=== PATIENT | female | born 1930 | race Caucasian/White ===

== ENCOUNTER 2019-11-15 16:08 | Emergency (ER) | payer OTHER, MEDICARE ==
--- OUTSIDE RECORDS SUMMARY | 2019-11-15 16:41 | XMS REPORT ---
:1930 [facility] Address [address] [place] [address] Dr. Garrido [address] [place] [id number] Care Team Providers Name Role Phone Unavailable Unavailable Unavailable Problems This patient has no known problems. Allergies, Adverse Reactions, Alerts This patient has no known allergies or adverse reactions. Medications This patient has no known medications.
--- NOTE | 2019-11-15 17:18 | RAD REPORT ---
EXAM DESCRIPTION: CT - Head Brain Wo Cont - 11/15/2019 5:11 pm CLINICAL HISTORY: headache, elevated blood pressure COMPARISON: HEAD BRAIN W O CONTRAST dated 02/21/2012 TECHNIQUE: Axial 5 mm thick images of the head were obtained without IV contrast. All CT scans are performed using dose optimization technique as appropriate and may include automated exposure control or mA/KV adjustment according to patient size. FINDINGS: No intracranial hemorrhage, mass, edema or shift of mid-line structures. No acute infarcti on changes seen. No cortical edema or sulcal effacement. Atrophy and chronic ischemic changes are pre sent mild to moderate for age. Ventricles are in proportion. Intracranial findings are similar to com parison imaging. Arterial and physiologic calcifications are present. Mastoid air cells and visualized portions of the paranasal sinuses are clear. No acute bony findings. IMPRESSION: Atrophy and chronic ischemic changes are present matching comparison. No acute intracranial finding.
--- NOTE | 2019-11-15 17:30 | RAD REPORT ---
EXAM DESCRIPTION: CT - Abdomen Pelvis Wo Contrast - 11/15/2019 5:12 pm CLINICAL HISTORY: abdominal pain, diarrhea COMPARISON: Abdomen Pelvis Wo Contrast dated 02/19/2019; Abdomen Pelvis Wo Contrast dated 12/14/19 18 TECHNIQUE: Axial [address] imaging of the abdomen and pelvis was performed without IV contrast. No IV contrast was given because of allergy, abnormal renal function, patient refusal or physician re quest. No oral contrast given. All CT scans are performed using dose optimization technique as appropriate and may include automated exposure control or mA/KV adjustment according to patient size. FINDINGS: No suspicious findings in the lung bases. The liver, spleen and pancreas show no suspicious findings on non-contrast imaging. Cholecystectomy c lips are present. No biliary tree dilatation. No hydronephrosis or suspicious renal mass. Fullness of the right renal pelvis matches comparison. Nu merous phleboliths are present but no ureteral calculi confirmed. No nonobstructing calculi. No signi ficant adrenal finding. Isodense renal masses and pyelonephritis cannot be excluded in the absence of IV contrast. The urinary bladder is without significant finding. Fluid filled but does not dilate the stomach. No gastric wall thickening or mass. Air densities along the proximal stomach are believed to be within gastric folds rather than gastric wall emphysema. Mul tiple fluid-filled prominent small bowel loops are present. Moderately prominent sigmoid diverticulos is without diverticulitis. There is moderate solid stool volume throughout the colon. No free air or free fluid. No large or small bowel pneumatosis. No hernia, mass or bulky lymphadenop athy. No suspicious bony findings. Prominent vascular calcifications present. The patient has aortoiliac endovascular stenting in place . IMPRESSION: No bowel obstruction, free air or surgically emergent finding. Multiple prominent fluid-filled small bowel loops consistent with an enteritis. No acute colon findin g. Fluid is filling but not dilating the stomach. Air densities in the proximal stomach are believed to be within the lumen of the stomach rather than gastric wall emphysema. Overall assessment is limited in the absence of oral and IV contrast. Full assessment is limited is the absence of IV contrast.
--- NOTE | 2019-11-15 17:33 | RAD REPORT ---
EXAM DESCRIPTION: RAD - Chest Single View - 11/15/2019 5:15 pm CLINICAL HISTORY: CHEST PAIN COMPARISON: Chest Pa And Lat (2 Views) dated 02/19/2019 TECHNIQUE: AP portable chest image was obtained 11/15/2019 5:15 pm . FINDINGS: No peripheral mass or consolidation. Patient has a very extensive interstitial fibrotic sahr ng pattern. Pattern is not substantially different when adjusting for a slightly more shallow inspira tory effort. Extent of disease can mask acute edema or infiltrate. Heart and vasculature are normal. No measurable pleural effusion and no pneumothorax. No acute bony abnormality seen. No acute aortic f indings suspected. IMPRESSION: Extensive chronic interstitial fibrotic lung disease. Extent of disease can mask mild or early interstitial edema or infiltrate.
[2019-11-15 17:43] LABS: Absolute Lymphocytes (CBC) 2.1 K/uL (0.7-4.9); Basophils % 0.6 % (0-1.3); Hematocrit 43.6 % (36.0-45.0); Lymphocytes % 26.9 % (15.3-44.8); MPV 8.6 fL (7.6-11.3); RBC Red Blood Cell Count 4.77 M/uL (3.86-4.86)
[2019-11-15 17:44] LABS: Protime INR 0.94
[2019-11-15] MEDS ORDERED: NA CHLORIDE 0.9% 500 ML ONE (17:46)
[2019-11-15] MEDS ORDERED: ACETAMINOPHEN 325 MG TABLET ONE (17:46)
[2019-11-15 17:59] LABS: ALT/SGPT 21 U/L (12-78); AST/SGOT 24 U/L (15-37); Albumin 3.9 g/dL (3.4-5.0); Alkaline Phosphatase 78 U/L (45-117); BUN Blood Urea Nitrogen 21 mg/dL (7-18); Bicarbonate 30 mmol/L (21-32); Bilirubin Direct 0.2 mg/dL (0-0.2); Bilirubin Total 0.4 mg/dL (0.2-1.0); Glucose Level 111 mg/dL (74-106); Magnesium 2.1 mg/dL (1.8-2.4); NT PRO-BNP 223 pg/mL (<450); Protein, Total 8.4 g/dL (6.4-8.2); Sodium Level 138 mmol/L (136-145); Troponin (Emerg Dept Use Only) < 0.02 ng/mL (0.0-0.045)
[2019-11-15 18:46] LABS: Urine Blood NEGATIVE (NEG); Urine Glucose NEGATIVE (NEG); Urine Protein NEGATIVE (NEG); Urine Specific Gravity 1.015 (1.005-1.030)
--- NOTE | 2019-11-15 18:57 | EDPHYS ---
Physician Documentation [facility] Name: Zoe Diaz Age: 89 yrs Sex: Female : 1930 Arrival Date: 11/15/2019 Time: 16:10 Bed 18 Private MD: ED Physician Onofre Garcia HPI: 11/15 16:50 This 89 yrs old Female presents to ER via Wheelchair with complaints of High jmm Blood Pressure. 16:50 The patient has elevated blood pressure and discovered this at home. Onset: The jmm symptoms/episode began/occurred gradually, 3 day(s) ago. Modifying factors: The symptoms are aggravated by The symptoms are alleviated by. Associated signs and symptoms: Pertinent positives: headache, Pertinent negatives: chest pain, dyspnea. This is an 89 year old female with a history of HTN that presents to the ED with complaints of right sided headache beginning approx 2 hours ago. Patient states she has not been feeling well since her cataract surgery this past Tuesday. Patient states she developed diarrhea after she ate. Patient also complains of abdominal distension with mild pain. . 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 - Coronavirus screen:: The patient has NOT traveled to [place] in the past 14 days. The patient has NOT had contact with known/suspected case of Coronavirus?. - Social history:: Smoking status: Patient denies any tobacco usage or history of. - Ebola Screening: : Patient negative for fever greater than or equal to 101.5 degrees Fahrenheit, and additional compatible Ebola Virus Disease symptoms Patient denies exposure to infectious person Patient denies travel to an Ebola-affected area in the 21 days before illness onset No symptoms or risks identified at this time. ROS: 16:50 Constitutional: Negative for fever, chills, and weight loss, Cardiovascular: Negative [facility] for chest pain, palpitations, and edema, Respiratory: Negative for shortness of breath, cough, wheezing, and pleuritic chest pain. 16:50 Constitutional: Positive for fatigue. 16:50 Abdomen/GI: Positive for abdominal pain, diarrhea. 16:50 Abdomen/GI: Positive for 16:50 Neuro: Positive for headache. 16:50 All other systems are negative. Exam: 16:50 Constitutional: This is a well developed, well nourished patient who is awake, alert, jmm and in no acute distress. Head/Face: atraumatic. Eyes: EOMI, no conjunctival erythema appreciated ENT: Moist Mucus Membranes Neck: Trachea midline, Supple Chest/axilla: Normal chest wall appearance and motion. Cardiovascular: Regular rate and rhythm. No edema appreciated Respiratory: Normal respirations, no respiratory distress appreciated Abdomen/GI: Non distended, soft Back: Normal ROM Skin: General appearance color normal MS/ Extremity: Moves all extremities, no obvious deformities appreciated, no edema noted to the lower extremities Neuro: Awake and alert, normal gait Vital Signs: 16:22 BP 193 / 77; Pulse 72; Resp 16 S; Temp 97.9(O); Pulse Ox 99% on R/A; Weight 48.99 kg ca1 (R); Height 5 ft. 7 in. (170.18 cm) (R); 18:01 BP 205 / 90; Pulse 68; Resp 22; Pulse Ox 100% ; bp 18:55 BP 177 / 78; Pulse 68; Resp 16; Pulse Ox 96% ; bp 19:30 BP 154 / 65; Pulse 67; Resp 18; Pulse Ox 97% on R/A; wh 16:22 Body Mass Index 16.92 (48.99 kg, 170.18 cm) ca1 MDM: 17:01 Patient medically screened. [facility] 18:54 Data reviewed: vital signs, nurses notes. Counseling: I had a detailed discussion with flakito the patient and/or guardian regarding: the historical points, exam findings, and any diagnostic results supporting the discharge/admit diagnosis, lab results, radiology results, the need for outpatient follow up, to return to the emergency department if symptoms worsen or persist or if there are any questions or concerns that arise at home. ED course: Care was discussed with Dr. Garcia through the patient's evaluation. Imaging studies, labs, ekgs were evaluated by Dr. Garcia. The patient's symptoms have resolved in the ED. Imaging studies appear most likely viral. Patient does not appear to have an acute process. Advised to follow up with Dr. Rouse for reevaluation. Family understood and agrees with the plan of care. . 11/15 16:50 Order name: Basic Metabolic Panel [facility] 11/15 16:50 Order name: CBC with Diff [facility] 11/15 16:50 Order name: LFT's [facility] 11/15 16:50 Order name: Magnesium [facility] 11/15 16:50 Order name: NT PRO-BNP [facility] 11/15 16:50 Order name: PT-INR [facility] 11/15 16:50 Order name: Troponin (emerg Dept Use Only) [facility] 11/15 17:56 Order name: CBC with Automated Diff; Complete Time: 17:56 [facility] 11/15 17:56 Order name: Protime (+INR); Complete Time: 17:56 [facility] 11/15 18:02 Order name: Basic Metabolic Panel; Complete Time: 18:02 [facility] 11/15 18:03 Order name: Liver (Hepatic) Function; Complete Time: 18:08 [facility] 11/15 18:03 Order name: Troponin (Emerg Dept Use Only); Complete Time: 18:08 [facility] 11/15 18:03 Order name: NT PRO-BNP; Complete Time: 18:08 [facility] 11/15 18:03 Order name: Magnesium; Complete Time: 18:08 [facility] 11/15 16:50 Order name: XRAY Chest (1 view) [facility] 11/15 16:50 Order name: EKG; Complete Time: 16:53 [facility] 11/15 16:50 Order name: Cardiac monitoring; Complete Time: 16:54 [facility] 11/15 16:50 Order name: EKG - Nurse/Tech; Complete Time: 17:39 [facility] 11/15 16:50 Order name: IV Saline Lock; Complete Time: 17:39 [facility] 11/15 16:50 Order name: Labs collected and sent; Complete Time: 17:39 [facility] 11/15 16:50 Order name: O2 Per Protocol; Complete Time: 16:55 [facility] 11/15 16:50 Order name: O2 Sat Monitoring; Complete Time: 16:55 [facility] 11/15 16:50 Order name: CT Head Brain wo Cont [facility] 11/15 17:01 Order name: CT Abd/Pelvis - Without Contrast [facility] 11/15 17:02 Order name: Urine Dipstick-Ancillary (obtain specimen); Complete Time: 18:26 [facility] 11/15 18:36 Order name: Urine Dipstick--Ancillary (enter results) em1 11/15 18:42 Order name: Vital Signs; Complete Time: 18:56 [facility] 11/15 18:49 Order name: Urine Dipstick-Ancillary; Complete Time: 18:49 EDMS Administered Medications: 17:30 Drug: Tylenol 650 mg Route: PO; bp 18:26 Follow up: Response: No adverse reaction bp 17:30 Drug: NS 0.9% 500 ml Route: IV; Rate: bolus; Site: right forearm; bp 18:26 Follow up: IV Status: Completed infusion; IV Intake: 500ml bp Disposition: 11/16 07:04 Co-signature as Attending Physician, Onofre Garcia MD I agree with the assessment and kdr plan of care. Disposition: 11/15/19 18:56 Discharged to Home. Impression: Headache, Diarrhea, unspecified. - Condition is Stable. - Discharge Instructions: Diarrhea, Adult, General Headache Without Cause. - Medication Reconciliation Form, Thank You Letter, Antibiotic Education, Prescription Opioid Use form. - Follow up: Private Physician; When: 2 - 3 days; Reason: Recheck today's complaints, Continuance of care, Re-evaluation by your physician. Signatures: Dispatcher [employer] EDMS Onofre Garcia MD MD kdr Mickail, Joel, PA PA [facility] Tara Ling Robert Schulte, KAYLA RN Stacie Medina RN RN ca1 Corrections: (The following items were deleted from the chart) 11/15 19:32 18:56 11/15/2019 18:56 Discharged to Home. Impression: Headache; Diarrhea, unspecified. Condition is Stable. Forms are Medication Reconciliation Form, Thank You Letter, Antibiotic Education, Prescription Opioid Use. Follow up: Private Physician; When: 2 - 3 days; Reason: Recheck today's complaints, Continuance of care, Re-evaluation by your physician. jmm
--- NOTE | 2019-11-15 18:57 | ER ---
Nurse's Notes [facility] Name: Zoe Diaz Age: 89 yrs Sex: Female : 1930 Arrival Date: 11/15/2019 Time: 16:10 Bed 18 Private MD: Diagnosis: Headache;Diarrhea, unspecified Presentation: 11/15 16:16 Presenting complaint: Child states: She had cataract surgery on Tuesday. Her BP today ca1 203/83. Reports headache and nausea. Also reports diarrhea everyday since Tuesday after the Cataract surgery. Transition of care: patient was not received from another setting of care. Onset of symptoms was November 15, 2019. Risk Assessment: Do you want to hurt yourself or someone else? Patient reports no desire to harm self or others. Initial Sepsis Screen: Does the patient meet any 2 criteria? No. Patient's initial sepsis screen is negative. Does the patient have a suspected source of infection? No. Patient's initial sepsis screen is negative. Care prior to arrival: None. 16:16 Method Of Arrival: Wheelchair ca1 16:16 Acuity: MATHIEU 3 ca1 Triage Assessment: 16:20 General: Appears in no apparent distress. comfortable, Behavior is cooperative, bp appropriate for age, anxious. Pain: Complains of pain in head. EENT: No deficits noted. Neuro: No deficits noted. Cardiovascular: Rhythm is sinus rhythm. Respiratory: No deficits noted. GI: No signs and/or symptoms were reported involving the gastrointestinal system. : No signs and/or symptoms were reported regarding the genitourinary system. Derm: No deficits noted. Musculoskeletal: No deficits noted. 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 - Coronavirus screen:: The patient has NOT traveled to [place] in the past 14 days. The patient has NOT had contact with known/suspected case of Coronavirus?. - Social history:: Smoking status: Patient denies any tobacco usage or history of. - Ebola Screening: : Patient negative for fever greater than or equal to 101.5 degrees Fahrenheit, and additional compatible Ebola Virus Disease symptoms Patient denies exposure to infectious person Patient denies travel to an Ebola-affected area in the 21 days before illness onset No symptoms or risks identified at this time. Screenin:20 Abuse screen: Denies threats or abuse. Denies injuries from another. Nutritional bp screening: No deficits noted. Tuberculosis screening: No symptoms or risk factors identified. Fall Risk None identified. Assessment: 16:20 General: SEE TRIAGE NOTE. bp 18:02 Reassessment: PT RETURNED FROM CT. UOP PENDING. bp 19:05 Reassessment: Patient appears in no apparent distress at this time. Patient and/or wh family updated on plan of care and expected duration. Pain level reassessed. Patient is alert, oriented x 3, equal unlabored respirations, skin warm/dry/pink. Vital Signs: 16:22 BP 193 / 77; Pulse 72; Resp 16 S; Temp 97.9(O); Pulse Ox 99% on R/A; Weight 48.99 kg ca1 (R); Height 5 ft. 7 in. (170.18 cm) (R); 18:01 BP 205 / 90; Pulse 68; Resp 22; Pulse Ox 100% ; bp 18:55 BP 177 / 78; Pulse 68; Resp 16; Pulse Ox 96% ; bp 19:30 BP 154 / 65; Pulse 67; Resp 18; Pulse Ox 97% on R/A; wh 16:22 Body Mass Index 16.92 (48.99 kg, 170.18 cm) ca1 ED Course: 16:10 Patient arrived in ED. as 16:19 Triage completed. ca1 16:20 Patient has correct armband on for positive identification. Bed in low position. Call bp light in reach. Side rails up X2. Adult w/ patient. 16:22 Arm band placed on right wrist. ca1 16:40 Robert Schulte RN is Primary Nurse. bp 16:49 Nicola Shane PA is PHCP. jmm 16:49 Onofre Garcia MD is Attending Physician. pranay 17:30 Inserted saline lock: 22 gauge in right forearm, using aseptic technique. Blood bp collected. 19:30 No provider procedures requiring assistance completed. IV discontinued, intact, bleeding controlled, No redness/swelling at site. Administered Medications: 17:30 Drug: Tylenol 650 mg Route: PO; bp 18:26 Follow up: Response: No adverse reaction bp 17:30 Drug: NS 0.9% 500 ml Route: IV; Rate: bolus; Site: right forearm; bp 18:26 Follow up: IV Status: Completed infusion; IV Intake: 500ml bp Intake: 18:26 IV: 500ml; Total: 500ml. bp Outcome: 18:56 Discharge ordered by . pranay 19:30 Discharged to home via wheelchair, with family. 19:30 Condition: stable 19:30 Discharge instructions given to patient, family, Instructed on discharge instructions, follow up and referral plans. POC Demonstrated understanding of instructions, follow-up care, POC 19:32 Patient left the ED. Signatures: Nicola Shane PA PA jmm Martinez, Amelia as Habalo, Winsy Robert Schulte, RN RN bp Stacie Nino RN RN ca1
[2019-11-16 12:10] VITALS: TEMP 97.9
[2019-11-16 12:14] VITALS: BP 154/65; O2SAT 97
--- NOTE | 2019-11-16 13:36 | EKG ---
Test Date: 2019-11-15 Test Time: 17:34:53 Machining Department Supervisor: JENNI MEASUREMENT RESULTS: Intervals: Rate: 72 PA: 154 QRSD: 86 QT: 378 QTc: 413 [place]: P: 81 PA: 154 QRS: 91 T: 80 INTERPRETIVE STATEMENTS: Normal sinus rhythm Rightward axis Borderline ECG Compared to ECG 12/13/2017 12:49:30 Right-axis deviation now present Atrial fibrillation no longer present Electronically Signed On 11-16-19 13:36:04 GAS STATION OPERATOR by Johan Wheat
== END 2019-11-15 19:32 | disposition home or self-care (01) ==
LOC: ER 16:08
DX: R19.7 Diarrhea, unspecified (principal); I10 Essential (primary) hypertension; Z95.9 Presence of cardiac and vascular implant and graft, unspecified; Z88.0 Allergy status to penicillin; Z88.1 Allergy status to other antibiotic agents; Z88.2 Allergy status to sulfonamides; Z88.3 Allergy status to other anti-infective agents; Z88.8 Allergy status to other drugs, medicaments and biological substances
CPT/HCPCS: 93005; 85025; 80048; 36415; 83735; 85610; 80076; 81003; 84484; 83880; 70450; 74176; 71045; 96360; 99284; J7040

== ENCOUNTER 2020-10-31 09:08 | Observation (INO) | payer OTHER, MEDICARE ==
--- OUTSIDE RECORDS SUMMARY | 2020-10-31 09:14 | XMS REPORT | Continuity of Care Document ---
:1930 Author Organization [facility] t Address [address] [place] [address] Care Team Providers Name Role Phone Francisco GARZA, Olivia Attending Clinician Unavailable Singer FERREIRA Attending Clinician Bev Mckeon Attending Clinician Parker GAITAN Attending Clinician Doctor Unassigned, Name Attending Clinician Unavailable Reid GAITAN, S Attending Clinician Parker GAITAN Admitting Clinician Problems This patient has no known problems. Allergies, Adverse Reactions, Alerts This patient has no known allergies or adverse reactions. Medications This patient has no known medications. Procedures This patient has no known procedures. Encounters Start End Encounter Admission Attending Care Care Encounter Source Date/Time Date/Time Type Type Clinicians Facility Department ID 2020-08-20 2020-08-20 Transition David Singh [id number] 00:00:00 00:00:00 of Care Nolan Davies [id number] [place] [id number] 2020-08-09 2020-08-19 [facility] Oleg Villegas [facility] [id number] 16:59:00 17:04:00 Encounter Audi Porras [id number] Deloris Canales [id number] [place] [id number] 2020-02-25 2020-02-25 Emergency Audi Porras [facility] [id number] 12:36:11 16:01:00 Bev Diop [id number] [place] [id number] [place] [id number] 2020-02-25 2020-02-25 Orders Doctor OLIVERIO [id number] 00:00:00 00:00:00 Only Unassigned, ESME [id number] [facility] [id number] 2020-02-15 2020-02-15 [facility] [id number] 03:34:26 06:46:00 Vj Diop [id number] [place] [id number] [place] [id number] Results This patient has no known results.
[2020-10-31 11:12] LABS: Absolute Lymphocytes (CBC) 1.6 K/uL (0.7-4.9); Basophils % 0.5 % (0-1.3); Hematocrit 42.3 % (36.0-45.0); Lymphocytes % 18.4 % (15.3-44.8); MPV 8.9 fL (7.6-11.3); RBC Red Blood Cell Count 4.68 M/uL (3.86-4.86)
[2020-10-31] MEDS ORDERED: MORPHINE 2 MG/ML SYR ONE ×2 (11:17→14:03)
[2020-10-31] MEDS ORDERED: FAMOTIDINE 20 MG/2 ML VIAL IV ONE (11:17)
[2020-10-31] MEDS ORDERED: NA CHLORIDE 0.9% 500 ML ONE (11:17)
[2020-10-31] MEDS ORDERED: ONDANSETRON 4 MG/2 ML VIAL ONE ×2 (11:17→14:04)
--- NOTE | 2020-10-31 12:38 | RAD REPORT ---
EXAM DESCRIPTION: RAD - Chest Single View - 10/31/2020 10:53 am CLINICAL HISTORY: ABDOMINAL DISTENTION, abdominal pain COMPARISON: Portable November 2019 TECHNIQUE: AP portable chest image was obtained 10/31/2020 10:53 am . FINDINGS: Lungs are extensively fibrotic as a baseline. No mass, consolidation or failure findings. Heart and vasculature are normal. No measurable pleural effusion and no pneumothorax. No acute bony a bnormality seen. No acute aortic findings suspected. IMPRESSION: No acute cardiopulmonary process. Prominent baseline fibrotic lung pattern matches comparison.
[2020-10-31 13:04] LABS: Albumin 3.2 g/dL (3.4-5.0); Bilirubin Direct 0.1 mg/dL (0-0.2); Bilirubin Total 0.4 mg/dL (0.2-1.0); Magnesium 1.7 mg/dL (1.8-2.4); Potassium 3.6 mmol/L (3.5-5.1)
--- NOTE | 2020-10-31 13:42 | RAD REPORT ---
EXAM DESCRIPTION: CTAbdomen Pelvis W Contrast - 10/31/2020 1:29 pm CLINICAL HISTORY: Abdominal pain. Abd pain;Abdominal distention COMPARISON: CT ABD PELVIS W CONTRAST dated 04/23/2008; Abdomen Pelvis Wo Contrast dated 11/15/2019 TECHNIQUE: Biphasic CT imaging of the abdomen and pelvis was performed with 100 ml non-ionic IV cont rast. All CT scans are performed using dose optimization technique as appropriate and may include automated exposure control or mA/KV adjustment according to patient size. 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 The liver, spleen, pancreas, adrenal glands and kidneys are within normal limits. Endovascular repair of abdominal aortic aneurysm is noted. Nonspecific distention is seen of small bowel loops and colon. Diverticulosis is present involving th e sigmoid colon with fecal retention. Appendectomy. No evidence of significant lymphadenopathy. Moderate bilateral hip osteoarthritis. IMPRESSION: No acute intra-abdominal or pelvic finding. Generalized gaseous distention of small bowel loops is nonspecific but may represent an ileus. Moderate sigmoid diverticulosis present with fecal retention.
--- NOTE | 2020-10-31 14:48 | EDPHYS ---
Physician Documentation [facility] Name: Zoe Diaz Age: 89 yrs Sex: Female : 1930 Arrival Date: 10/31/2020 Time: 09:13 Bed 17 Private MD: ED Physician Onofre Garcia HPI: 10/31 10:05 This 89 yrs old Female presents to ER via Wheelchair with complaints of BOWEL cp BLOCKAGE. 10:05 The patient presents with abdominal pain that is diffuse. cp 10:05 Onset: The symptoms/episode began/occurred 1 week(s) ago. Associated signs and cp symptoms: Pertinent positives: diarrhea, nausea, abdominal distension, Pertinent negatives: fever, vomiting. The symptoms are described as constant. 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 - Social history:: Smoking status: Patient denies any tobacco usage or history of. ROS: 10:15 Constitutional: Negative for body aches, chills, fever, poor PO intake. cp 10:15 Eyes: Negative for injury, pain, redness, and discharge. cp 10:15 ENT: Negative for ear pain, sore throat, difficulty swallowing, difficulty handling secretions. 10:15 Cardiovascular: Negative for chest pain, palpitations. 10:15 Respiratory: Negative for cough, shortness of breath, wheezing. 10:15 Abdomen/GI: Positive for abdominal pain, nausea, diarrhea, abdominal distension, Negative for vomiting, constipation, black/tarry stool, rectal bleeding. 10:15 Back: Negative for pain at rest, pain with movement. 10:15 : Negative for urinary symptoms. 10:15 All other systems are negative. Exam: 10:20 Head/Face: Normocephalic, atraumatic. cp 10:20 Constitutional: The patient appears in no acute distress, alert, awake, non-diaphoretic, non-toxic, well developed, well nourished, uncomfortable. 10:20 Eyes: Periorbital structures: appear normal, Conjunctiva: normal, no exudate, no injection, Sclera: no appreciated abnormality, Lids and lashes: appear normal, bilaterally. 10:20 ENT: External ear(s): are unremarkable, Nose: is normal, Posterior pharynx: Airway: no evidence of obstruction, patent. 10:20 Chest/axilla: Inspection: normal, Palpation: is normal, no crepitus, no tenderness. 10:20 Cardiovascular: Rate: normal, Rhythm: regular, Edema: is not appreciated, JVD: is not appreciated. 10:20 Respiratory: the patient does not display signs of respiratory distress, Respirations: normal, no use of accessory muscles, labored breathing, is not present, Breath sounds: are clear throughout, no decreased breath sounds. 10:20 Abdomen/GI: Inspection: distension, that is mild, Bowel sounds: active, all quadrants, Palpation: soft, in all quadrants, moderate abdominal tenderness, in the right lower quadrant and left lower quadrant, voluntary guarding, is not appreciated, involuntary guarding, is not appreciated. 10:20 Back: pain, is absent, ROM is normal. Vital Signs: 09:57 BP 218 / 98; Pulse 83; Resp 20; Temp 98.0(O); Pulse Ox 97% on R/A; Weight 46.72 kg; ss Height 5 ft. 7 in. (170.18 cm); Pain 3/10; 11:13 BP 181 / 79; Pulse 75; Resp 18; Pulse Ox 98% on R/A; Pain 3/10; em 12:24 BP 169 / 78; Pulse 73; Resp 16; Pulse Ox 100% on R/A; vg1 13:00 BP 174 / 72; Pulse 67; Resp 12; Pulse Ox 100% on R/A; vg1 14:00 BP 173 / 67; Pulse 65; Resp 16; Pulse Ox 99% on R/A; vg1 15:00 BP 180 / 75; Pulse 65; Resp 20; Pulse Ox 100% on R/A; vg1 09:57 Body Mass Index 16.13 (46.72 kg, 170.18 cm) MDM: 09:55 Patient medically screened. 14:30 Physician consultation: Wojciech Ellis MD was called at 14:30, was contacted at 14:30, regarding consult, patient's condition, would like admission per Dr. Preston Rouse MD. 14:30 Data reviewed: vital signs, nurses notes, lab test result(s), radiologic studies, CT cp scan, plain films, and as a result, I will admit patient. 14:30 Counseling: I had a detailed discussion with the patient and/or guardian regarding: the cp historical points, exam findings, and any diagnostic results supporting the discharge/admit diagnosis, lab results, radiology results, the need for further work-up and treatment in the hospital. Response to treatment: the patient's symptoms have markedly improved after treatment. 10/31 10:01 Order name: Basic Metabolic Panel; Complete Time: 14:19 10/31 14:24 Interpretation: Normal except: CL 111; BUN 19; GFR 86; CA 8.3. 10/31 10:01 Order name: CBC with Diff; Complete Time: 14:19 10/31 10:01 Order name: Hepatic Function; Complete Time: 14:19 10/31 10:01 Order name: Lipase; Complete Time: 14:19 10/31 10:01 Order name: Lactate; Complete Time: 14:19 10/31 10:01 Order name: Magnesium; Complete Time: 14:19 10/31 10:30 Order name: Urine Microscopic Only 10/31 12:17 Order name: SARS-COV-2 RT PCR; Complete Time: 14:19 [facility] 10/31 15:15 Order name: Basic Metabolic Panel [facility] 10/31 15:15 Order name: Basic Metabolic Panel [facility] 10/31 15:15 Order name: CBC with Automated Diff [facility] 10/31 15:15 Order name: CBC with Automated Diff [facility] 10/31 15:15 Order name: Lipase [facility] 10/31 10:01 Order name: IV Saline Lock; Complete Time: 10:42 10/31 10:01 Order name: Labs collected and sent; Complete Time: 12:00 10/31 10:01 Order name: CT Abd/Pelvis - PO Contrast Only; Complete Time: 14:19 10/31 10:01 Order name: XRAY Chest (1 view); Complete Time: 14:19 10/31 14:21 Interpretation: Report reviewed. 10/31 15:15 Order name: CONS Physician Consult [facility] 10/31 15:15 Order name: NPO [facility] 10/31 15:15 Order name: Lipase [facility] 10/31 15:15 Order name: Liver (Hepatic) Function [facility] 10/31 15:15 Order name: Liver (Hepatic) Function [facility] 10/31 11:09 Order name: Labs - recollect needed: green top recollect; Complete Time: 12:25 eb Administered Medications: 11:09 Drug: Zofran (Ondansetron) 4 mg Route: IVP; Site: right forearm; em 12:00 Follow up: Response: No adverse reaction; Marked relief of symptoms; Nausea is decreasedem 11:11 Drug: NS 0.9% 500 ml Route: IV; Rate: 500 ml/hr; Site: right forearm; em 12:00 Follow up: IV Status: Completed infusion; IV Intake: 500ml em 11:11 Drug: morphine 2 mg Route: IVP; Site: right forearm; em 11:12 Drug: Pepcid 20 mg Route: IVP; Site: right forearm; em 12:00 Follow up: Response: No adverse reaction em 14:01 Drug: morphine 2 mg {Note: rass0.} Route: IVP; Site: right forearm; vg1 14:32 Follow up: Response: Pain is decreased vg1 14:01 Drug: Zofran (Ondansetron) 4 mg Route: IVP; Site: right forearm; vg1 14:31 Follow up: Response: Nausea is decreased vg1 15:27 Drug: NS 0.9% 1000 ml Route: IV; Rate: 75 ml/hr; Site: right wrist; vg1 16:24 Follow up: IV Status: Infusion continued upon admission vg1 Disposition: 18:50 Co-signature as Attending Physician, Onofre Garcia MD I agree with the assessment and kdr plan of care. Disposition: 10/31/20 14:47 Hospitalization ordered by Preston Rouse for Inpatient Admission. Preliminary diagnosis is Ileus, unspecified. - Bed requested for Telemetry/MedSurg (Inpatient). - Status is Inpatient Admission. vg1 - Condition is Stable. - Problem is new. - Symptoms have improved. Signatures: Dispatcher [employer] [facility] Onofre Garcia MD MD [facility] Manjit Howard RN RN em Smirch, Shelby, RN RN ss Page, Corey, PA PA cp Botello, Elizabeth eb Garcia, Victoria, RN RN vg1 Corrections: (The following items were deleted from the chart) 11:30 10:02 CORONAVIRUS+ ordered. EDMO EDMS 12:02 11:58 Constitutional: The patient appears in no acute distress, alert, awake, cp non-diaphoretic, non-toxic, well developed, well nourished, uncomfortable, cp 12:02 11:58 Head/Face: Normocephalic, atraumatic. cp cp 12:02 11:58 Eyes: Periorbital structures: appear normal, Conjunctiva: normal, no exudate, no cp injection, Sclera: no appreciated abnormality, Lids and lashes: appear normal, bilaterally, cp 12:02 11:58 ENT: External ear(s): are unremarkable, Nose: is normal, Posterior pharynx: cp Airway: no evidence of obstruction, patent, cp 12:02 11:58 Chest/axilla: Inspection: normal, Palpation: is normal, no crepitus, no cp tenderness, cp 12:02 11:58 Cardiovascular: Rate: normal, Rhythm: regular, Edema: is not appreciated, JVD: is cp not appreciated, cp 12:02 11:58 Respiratory: the patient does not display signs of respiratory distress, cp Respirations: normal, no use of accessory muscles, labored breathing, is not present, Breath sounds: are clear throughout, no decreased breath sounds, cp 12:02 11:58 Abdomen/GI: Inspection: distension, that is mild, Bowel sounds: active, all cp quadrants, Palpation: soft, in all quadrants, moderate abdominal tenderness, in the right lower quadrant and left lower quadrant, voluntary guarding, is not appreciated, involuntary guarding, is not appreciated, cp 12:02 11:58 Back: pain, is absent, ROM is normal, cp cp 14:24 14:20 Normal except: CL 111; BUN 19; GFR 86. cp cp 15:38 14:47 Hospitalization Ordered by Preston Rouse MD for Inpatient Admission. Preliminary eb diagnosis is Ileus, unspecified. Bed requested for Telemetry/MedSurg (Inpatient). Status is Inpatient Admission. Condition is Stable. Problem is new. Symptoms have improved. cp 16:33 15:38 10/31/2020 14:47 Hospitalization Ordered by Preston Rouse MD for Inpatient vg1 Admission. Preliminary diagnosis is Ileus, unspecified. Bed requested for Telemetry/MedSurg (Inpatient). Status is Inpatient Admission. Condition is Stable. Problem is new. Symptoms have improved. eb
--- NOTE | 2020-10-31 14:48 | ER ---
Nurse's Notes [facility] Name: Zoe Diaz Age: 89 yrs Sex: Female : 1930 Arrival Date: 10/31/2020 Time: 09:13 Bed 17 Private MD: Diagnosis: Ileus, unspecified Presentation: 10/31 09:59 Chief complaint: Patient states: abd pain, nausea and diarrhea that began 1 week ago. ss Coronavirus screen: Client denies travel out of the [place] in the last 14 days. Ebola Screen: Patient denies exposure to infectious person. Patient denies travel to an Ebola-affected area in the 21 days before illness onset. Initial Sepsis Screen: Does the patient meet any 2 criteria? No. Patient's initial sepsis screen is negative. Does the patient have a suspected source of infection? No. Patient's initial sepsis screen is negative. Risk Assessment: Do you want to hurt yourself or someone else? Patient reports no desire to harm self or others. Onset of symptoms was October 24, 2020. 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 - Social history:: Smoking status: Patient denies any tobacco usage or history of. Screenin:01 Abuse screen: Denies threats or abuse. Denies injuries from another. ss 10:40 Nutritional screening: No deficits noted. Tuberculosis screening: No symptoms or risk em factors identified. Fall Risk None identified. Assessment: 11:00 General: Appears in no apparent distress. uncomfortable, Behavior is calm, cooperative. em Pain: Complains of pain in abdomen Pain currently is 3 out of 10 on a pain scale. Neuro: Level of Consciousness is awake, alert, obeys commands, Oriented to person, place, time, situation. Cardiovascular: Capillary refill < 3 seconds Patient's skin is warm and dry. Respiratory: Airway is patent Respiratory effort is even, unlabored, Respiratory pattern is regular, symmetrical. GI: Abdomen is flat, non-distended, Reports nausea, vomiting. Derm: Skin is fragile, is thin, Skin is pink, warm \T\ dry. Musculoskeletal: Range of motion: intact in all extremities. 11:30 Reassessment: finished drinking PO contrast, no adverse reactions noted. em 12:22 General: Appears in no apparent distress. Behavior is calm, cooperative. Pain: vg1 Complains of pain in abdomen Pain currently is 3 out of 10 on a pain scale. Neuro: Level of Consciousness is awake, alert, obeys commands, Oriented to person, place, time, situation. Cardiovascular: Patient's skin is warm and dry. Respiratory: Airway is patent Respiratory effort is even, unlabored, Respiratory pattern is regular, symmetrical. GI: Abdomen is flat, non-distended. : No signs and/or symptoms were reported regarding the genitourinary system. EENT: No signs and/or symptoms were reported regarding the EENT system. Derm: Skin is pink, warm \T\ dry. Musculoskeletal: Circulation, motion, and sensation intact. 12:24 Reassessment: repeat chemistry sent to lab. em 13:36 Reassessment: Patient c/o headache and nausea. Notified provider. vg1 13:45 Reassessment: Received VO from Hossein Marquez to administer Zofran 4mg IVP x1. vg1 14:32 Reassessment: Patient appears in no apparent distress at this time. Patient is alert, vg1 oriented x 3, equal unlabored respirations, skin warm/dry/pink. Patient states the pain has decreased and feels a little bit better. 15:27 Reassessment: Patient appears in no apparent distress at this time. Patient and/or vg1 family updated on plan of care and expected duration. Pain level reassessed. Patient is alert, oriented x 3, equal unlabored respirations, skin warm/dry/pink. Vital Signs: 09:57 BP 218 / 98; Pulse 83; Resp 20; Temp 98.0(O); Pulse Ox 97% on R/A; Weight 46.72 kg; ss Height 5 ft. 7 in. (170.18 cm); Pain 3/10; 11:13 BP 181 / 79; Pulse 75; Resp 18; Pulse Ox 98% on R/A; Pain 3/10; em 12:24 BP 169 / 78; Pulse 73; Resp 16; Pulse Ox 100% on R/A; vg1 13:00 BP 174 / 72; Pulse 67; Resp 12; Pulse Ox 100% on R/A; vg1 14:00 BP 173 / 67; Pulse 65; Resp 16; Pulse Ox 99% on R/A; vg1 15:00 BP 180 / 75; Pulse 65; Resp 20; Pulse Ox 100% on R/A; vg1 09:57 Body Mass Index 16.13 (46.72 kg, 170.18 cm) ss ED Course: 09:13 Patient arrived in ED. am4 09:47 Hossein Marquez PA is PHCP. cp 09:47 Onofre Garcia MD is Attending Physician. cp 10:00 Triage completed. ss 10:01 Arm band placed on right wrist. ss 10:01 Patient has correct armband on for positive identification. Placed in gown. Bed in low ss position. vehicle monitor technician on. Pulse ox on. NIBP on. Warm blanket given. 10:25 Inserted saline lock: 20 gauge in right forearm, using aseptic technique. Blood dh3 collected. 10:27 Manjit Howard, RN is Primary Nurse. em 10:41 Basic Metabolic Panel Sent. dh3 10:42 Hepatic Function Sent. dh3 10:42 Lipase Sent. dh3 10:53 XRAY Chest (1 view) In Process Unspecified. EDMS 12:03 Primary Nurse role handed off by Manjit Howard, RN vg1 12:03 Laxmi Kirkpatrick, RN is Primary Nurse. vg1 13:29 CT Abd/Pelvis - PO Contrast Only In Process Unspecified. EDMS 14:46 Preston Rouse MD is Hospitalizing Provider. cp 16:19 No provider procedures requiring assistance completed. Patient admitted, IV remains in vg1 place. Administered Medications: 11:09 Drug: Zofran (Ondansetron) 4 mg Route: IVP; Site: right forearm; em 12:00 Follow up: Response: No adverse reaction; Marked relief of symptoms; Nausea is decreasedem 11:11 Drug: NS 0.9% 500 ml Route: IV; Rate: 500 ml/hr; Site: right forearm; em 12:00 Follow up: IV Status: Completed infusion; IV Intake: 500ml em 11:11 Drug: morphine 2 mg Route: IVP; Site: right forearm; em 11:12 Drug: Pepcid 20 mg Route: IVP; Site: right forearm; em 12:00 Follow up: Response: No adverse reaction em 14:01 Drug: morphine 2 mg {Note: rass0.} Route: IVP; Site: right forearm; vg1 14:32 Follow up: Response: Pain is decreased vg1 14:01 Drug: Zofran (Ondansetron) 4 mg Route: IVP; Site: right forearm; vg1 14:31 Follow up: Response: Nausea is decreased vg1 15:27 Drug: NS 0.9% 1000 ml Route: IV; Rate: 75 ml/hr; Site: right wrist; vg1 16:24 Follow up: IV Status: Infusion continued upon admission vg1 Intake: 12:00 IV: 500ml; Total: 500ml. em Outcome: 14:47 Decision to Hospitalize by Provider. cp 16:19 Admitted to Tele accompanied by tech, via stretcher, room 220, with chart, Report vg1 called to KAYLA Victor 16:19 Condition: stable 16:19 Instructed on the need for admit. 16:33 Patient left the ED. vg1 Signatures: Dispatcher [employer] Manjit Dorado RN RN em Smirch, Shelby, RN RN ss Page, Corey, PA PA Bruna Arcos [facility] Laxmi Kirkpatrick RN RN vg1 Melly Kirby [facility]
[2020-10-31] MEDS ORDERED: MORPHINE 4 MG/ML SYR IV PRN (15:13)
[2020-10-31] MEDS ORDERED: ONDANSETRON 4 MG/2 ML VIAL IV PRN (15:13)
[2020-10-31] MEDS ORDERED: NA CHLORIDE 0.9% 1,000 ML ONE (15:33)
[2020-10-31] MEDS: D5 0.45 NS 1,000 ML IV SCH (16:00)
[2020-10-31 16:47] VITALS: O2SAT 100
[2020-10-31 19:47] VITALS: BMI 16.1
--- NOTE | 2020-10-31 20:37 | P.SSS ---
Patient History Date of Service: 10/31/20 Reason for admission: PATIENT SAYS I HAVE OBSTRUCTION. History of Present Illness: MS. MCNAMARA HAS CHRONIC DIARRHEA AND HAS BEEN TO GI DOCTOR, I ALSO HAVE DONE STOOL SAMPLE TESTING WITHOUT ANY RESULTS. SHE CAME TO ER SAYING THAT SHE HAS OBSTRUCTION BUT SHE HAD A LARGE BM YESTERDAY THAT IT STAINED THE FLOOR OF THE WHOLE BATHROOM PER DAUGHTER. SOMEHOW PA LISTENED TO HER SAYING THAT SHE HAS OBSTRUCTION AND ADMITTED HER. THEY ARE CONVINCED THAT BENEATH HER HAVING COMPLAINTS OF CHRONIC DIARREHA SHE NOW HAS BOWEL OBSTRUCTION. SHE IS WEAK AND SHE WITH ANY SYMPTOMS DOES GET WEAK AND HAS HEADACHES. SHE HAS NO FEVER. Allergies ciprofloxacin [From Cipro] Allergy (Severe, Verified 02/21/12 21:00) Itching ciprofloxacin HCl [From Cipro] Allergy (Severe, Verified 12/13/17 13:11) Itching iodine [Iodine] Allergy (Severe, Verified 12/13/17 13:11) Itching/Hives/Rash levofloxacin [From Levaquin] Allergy (Severe, Verified 12/13/17 13:11) Anaphylaxis Penicillins Allergy (Severe, Verified 12/13/17 13:11) Anaphylaxis Cephalosporins Allergy (Unknown, Verified 12/13/17 13:11) unknown cefdinir [From Omnicef] Allergy (Verified 12/13/17 13:11) Unknown Sulfa (Sulfonamide Antibiotics) Allergy (Verified 12/13/17 13:11) Unknown Quinolone Allergy (Uncoded 12/05/17 21:25) Unknown Home Medications: Aspirin Chewable [Aspirin Chewable*] 81 mg PO DAILY 02/21/12 Clopidogrel Bisulfate [Plavix] 75 mg PO DAILY 02/21/12 Simvastatin 20 mg PO DAILY 04/29/16 Gabapentin [Neurontin*] 100 mg PO TID #90 cap 12/06/17 Metoprolol Ho/Hydrochlorothiaz [Metoprolol ER-Hctz 25-12.5 mg] 25 mg PO DAILY 12/06/17 Cholecalciferol (Vitamin D3) [Vitamin D3] 2,000 units PO DAILY 10/31/20 Fluticasone/Vilanterol [Breo Ellipta 200-25 Mcg INH] 200 mcg PO DAILY 10/31/20 Losartan/Hydrochlorothiazide [Losartan-Hctz 100-12.5 mg Tab] 25 mg PO DAILY 10/31/20 Magnesium [Magnesium Gluconate] 400 mg PO DAILY 10/31/20 - Past Medical/Surgical History Has patient received pneumonia vaccine in the past: No Diabetic: No -: DIVERTICULITIS -: AORTIC ABDOMINAL ANEURYSYM -: HIGH BLOOD PRESSURE -: CAROTID -: TRIPLE A REPAIR -: JONATAN -: PARTIAL HYSTERECTOMY -: BLADDER SUSPENSION - Family History Father -: Heart disease Mother -: Heart disease - Social History Smoking Status: Never smoker Alcohol use: No CD- Drugs: No Caffeine use: Yes Place of Residence: Home Review of Systems 10-point ROS is otherwise unremarkable General: Weakness, Malaise Physical Examination - Vital Signs Temperature: 98.0 F Blood Pressure: 180/75 Pulse: 65 Respirations: 20 - Physical Exam General: Mild distress HEENT: Atraumatic, PERRLA, Mucous membr. moist/pink, EOMI, Sclerae nonicteric Neck: Supple, 2+ carotid pulse no bruit, No LAD, Without JVD or thyroid abnormality Respiratory: Clear to auscultation bilaterally, Normal air movement Cardiovascular: Regular rate/rhythm, Normal S1 S2 Gastrointestinal: Normal bowel sounds, Soft and benign, No tenderness, No rebound Musculoskeletal: No tenderness Integumentary: No rashes Neurological: Normal gait, Normal speech, Normal strength at 5/5 x4 extr, Normal tone, Normal affect Lymphatics: No axilla or inguinal lymphadenopathy - Studies Laboratory Data (last 24 hrs) 10/31/20 12:22: Sodium 140, Potassium 3.6, BUN 19 H, Creatinine 0.65, Glucose 97, Magnesium 1.7 L, Total Bilirubin 0.4, AST 19, ALT 14, Alkaline Phosphatase 77, Lipase 98 10/31/20 11:01: WBC 8.60, Hgb 14.0, Hct 42.3, Plt Count 233 - Diagnosis (Problem(s)) (1) Constipation Current Visit: Yes Status: Acute Plan: SHE ON CT SCAN SHOWS MODERATE SIGMOID FECAL RETENTION. THIS EXPLAINS HER HAVING EXPLOSIVE BM LAST NIGHT AROUND THE STOOL RETAINED IN SIGMOID COLON. IDEALLY AN OIL RETENTION ENEMA MAY HELP. I WILL DISCUSS WITH HER IN AM. Qualifiers: Constipation type: chronic idiopathic constipation Qualified Code(s): K59.04 - Chronic idiopathic constipation (2) Chronic diarrhea Current Visit: Yes Status: Chronic Plan: ABOVE THIS IS PASSAGE OF PREMATURE UNFORMED STOOL AROUND THE IMPACTION IN SIGMOID COLON. I WILL DISCUSS WITH HER THAT PSYLLIUM HUSK MAY HELP. - Disposition Disposition: ROUTINE DISCHARGE
[2020-10-31 20:51] LABS: MPV 8.7 fL (7.6-11.3)
[2020-10-31 21:47] LABS: Platelet Estimate ADEQ; Platelets, Giant FEW
[2020-10-31] MEDS: GABAPENTIN 100 MG CAP PO SCH (22:15)
[2020-10-31 23:20] LABS: Urine Appearance CLEAR; Urine Bilirubin NEGATIVE (NEG); Urine Blood NEGATIVE (NEG); Urine Color YELLOW; Urine Glucose NEGATIVE (NEG); Urine Protein NEGATIVE (NEG); Urine Specific Gravity <=1.005 (1.005-1.030); Urine Urobilinogen 0.2 mg/dL (0.2-1.0); Urine pH 6.5 (5.0-7.0)
[2020-10-31 23:49] LABS: Urine Bacteria <20 /HPF (<20); Urine RBC <5 /HPF (NONE SEEN)
[2020-11-01 06:00] LABS: Absolute Lymphocytes (CBC) 1.4 K/uL (0.7-4.9); Basophils % 1.2 % (0-1.3); Lymphocytes % 26.7 % (15.3-44.8); MPV 9.1 fL (7.6-11.3); RBC Red Blood Cell Count 4.32 M/uL (3.86-4.86)
[2020-11-01 06:25] LABS: Potassium 3.6 mmol/L (3.5-5.1)
[2020-11-01] MEDS: D5 0.45 NS 1,000 ML IV SCH (07:31)
[2020-11-01] MEDS ORDERED: CLOPIDOGREL 75 MG TABLET PO SCH (09:00)
[2020-11-01] MEDS ORDERED: ENOXAPARIN 40 MG/0.4 ML SQ SCH (09:00)
[2020-11-01] MEDS ORDERED: HOME MED 1 EA UNK (Fluticasone/Vilanterol [Breo Ellipta 200-25 Mcg Inh] Blst.W.Dev) PO SCH (09:00)
[2020-11-01] MEDS ORDERED: MINERAL OIL ENEMA 135 ML BTL PR SCH (09:00)
[2020-11-01] MEDS ORDERED: ATORVASTATIN 10 MG TAB PO SCH (09:00)
[2020-11-01] MEDS ORDERED: [UNRECOGNIZED DRUG - OTHER] PO SCH (09:00)
[2020-11-01] MEDS ORDERED: HYDROCHLOROTHIAZ PO SCH (09:00)
[2020-11-01] MEDS ORDERED: METOPROLOL SU PO SCH (09:00)
[2020-11-01] MEDS ORDERED: HOME MED 1 EA UNK (Losartan/Hydrochlorothiazide [Losartan-Hctz 100-12.5 Mg Tab] Tablet) PO SCH (09:00)
[2020-11-01] MEDS ORDERED: MAGNESIUM OXIDE 400 MG TAB PO SCH (09:00)
[2020-11-01] MEDS: GABAPENTIN 100 MG CAP PO SCH (09:34)
[2020-11-01] MEDS ORDERED: METOPROLOL XL 25 MG TAB PO SCH (10:00)
[2020-11-01] MEDS ORDERED: LOSARTAN POTASSIUM 50 MG TABLET PO SCH (10:00)
[2020-11-01] MEDS ORDERED: PNEUMOCOCCAL VACCINE 0.5 ML IMVAC ONE (11:00)
[2020-11-01 12:25] VITALS: BP 178/75; TEMP 97.9
--- NOTE | 2020-11-01 12:59 | CON ---
Date of Consultation: 11/01/2020 Brief History Of Present Illness: The patient is an 89-year-old female, who comes to the ER with com plaints of abdominal pain and persistent diarrhea over the past several days. She has been seen by g astroenterologist in the past and had stool safely without any results. She came in complaining of p ossible obstruction, but she did have a large bowel yesterday at which was explosive diarrhea by her description. She apparently had been admitted to [facility] with a bowel obstruction. She descri bes NG tube decompression, serial x-rays and had described that she had a blockage in her intestines at that time that almost required surgery, but ultimately she resolved and as such, was sent home wit h the above-stated issues. She now presents with same said complaints, although now she is currently pain free. She continues to pass gas, but she has not had a bowel movement since her admission yest erday. Her last bowel movement as described was the day before, which was watery explosive diarrhea. She has had no nausea, no vomiting. She has no abdominal pain. No distention at this time. Past Medical History: Significant for aortic aneurysm, C diff in the past, hypertension, diverticuli tis. Past Surgical History: She had partial hysterectomy, cholecystectomy, appendectomy, abdominal stents for her aortic aneurysm. Allergies: TO CEPHALOSPORIN, CIPRO, IODINE, LEVAQUIN, OMNICEF, PENICILLIN, QUINOLONE, SULFA. Social History: She denies smoking, alcohol, or recreational drug use. Physical Examination: Vital Signs: At the time of examination, her BMI is 16.1, her blood pressure is 178/81, pulse 63, re spiratory rate 18, temperature 96.9. General: She is awake, alert, oriented. Psychiatric: She is appropriate and conversive. HEENT: She is normocephalic. Sclerae icteric. Mucous membranes are moist. Oropharynx clear. Neck: Supple. No JVD. Chest: Normal expansion and excursion. Cardiovascular: Regular rate and rhythm. Pulmonary: Clear to auscultation bilaterally. Abdomen: Soft, nontender, nondistended. No rebound. No guarding. No focal peritonitis. Well-heal ed surgical scars are noted. Laboratory Data: Revealed a white blood cell count of 5.2, hemoglobin 12.6, hematocrit 39.0, platele t count is 185, her neutrophils were normal at 53%. Sodium 140, potassium 3.6, chloride 109, carbon dioxide 27, BUN 12, creatinine 0.7, glucose is 101. Her calcium 8.9, lipase is 98 on admission. AST was 19, ALT 14, alkaline phosphatase is 77, total bilirubin 0.4. She was negative on her UA. Her C OVID test was negative as well. She had imaging performed, which included a CT abdomen and pelvis, w hich showed no acute intraabdominal pelvic findings, generalized gaseous distention of small bowel lo ops, it is nonspecific, may represent ileus, moderate sigmoid diverticulosis present with fecal reten tion. Assessment/plan: This is an 89-year-old female with likely impacted stool in the sigmoid colon. 1.IV fluid hydration. 2.Serial exams. 3.Enemas and when patient has bowel function return, I recommend discharge. At that point, she can follow up with GI for outpatient colonoscopy if she has not had one in the recent past. She cannot r ecall the details of which and continue workup as an outpatient. I have explained the risks, benefit s, and alternatives of the above stated plan. The patient agrees to proceed as indicated. ANYA/ODALYS Voice ID: [id number] Report ID: [id number]
== END 2020-11-01 15:08 | disposition home or self-care (01) ==
LOC: ER 09:08 → ERHOLD 15:12 → INTOOBSV 15:12 → 2ND 16:19
PROVIDERS: ADMIT Internal Medicine; ATTEND Internal Medicine
DX: K59.04 Chronic idiopathic constipation (principal); R19.7 Diarrhea, unspecified; I10 Essential (primary) hypertension; Z20.822 Contact with and (suspected) exposure to COVID-19
CPT/HCPCS: 96361; 85025 ×2; 81001; 80048 ×2; 36415; 83735; 85049; 80076; 83605; 83690; 74177; 71045; 96375; 96374; 99285; U0003; J1650; J2270 ×2; J7799 ×2; J7040; J7030; J2405 ×2; G0378

== ENCOUNTER 2021-06-15 15:10 | Emergency (ER) | payer OTHER, MEDICARE ==
--- OUTSIDE RECORDS SUMMARY | 2021-06-15 15:13 | XMS REPORT | Continuity of Care Document ---
:1930 Author Organization [facility] t Address [address] [place] [address] Care Team Providers Name Role Phone Padma Sheikh Primary Care Physician Therapist, Respiratory Attending Clinician Unavailable Karie FERREIRA Attending Clinician Only, Test Attending Clinician Unavailable Doctor Unassigned, Name Attending Clinician Unavailable Francisco GARZA, A Attending Clinician Unavailable Singer FERREIRA Attending Clinician Bev Mckeon Attending Clinician Parker GAITAN Attending Clinician Reid GAITAN S Attending Clinician Parker GAITAN Admitting Clinician Payers Payer Name Policy Type Policy Number Effective Date Expiration Date S ource Problems Condition Condition Condition Status Onset Resolution Last Treating Co mments Source Name Details Category Date Date Treatment Clinician Date CAD CAD Disease Active Univers (coronary (coronary 3-09 ity of artery artery 00:00: [place] disease) disease) 00 Medica l Branch PAD PAD Disease Active 2019-10 Univers (periphera (periphera 1-11 it y of l artery l artery 00:00: [place] disease) disease) 00 Medica l Branch Preop Preop Disease Active 2019-10 Univers cardiovasc cardiovasc 1-11 [place] of ular exam [place] 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 11 ity of artery artery 00:00: [place] stenosis stenosis 00 Medica l Branch Essential Essential Disease Active 2019-10 Uni vers hypertensi hypertensi 10-13 it y of on on 00:00: Medical Branch Other Other Disease Active 2019-10 Univers hyperlipid hyperlipid 10-13 it y of emia emia 00:00: Medical Branch Abdominal Abdominal Disease Active 2019-10 Uni vers aortic aortic 10-13 ity of aneurysm aneurysm 00:00: [place] (AAA) (AAA) 00 Medical without without Branch rupture rupture Tachycardi Tachycardi Disease Active 2019-10 U nivers a a 10-13 ity of 00:00: [place] Medical [facility] SBO (small SBO (small Disease Active 2019-10 U nivers bowel bowel 10-09 [place] obstruct[place] Wrist Wrist Disease Active Univers pain, left pain, left 6-07 it y of 00:00: [place] [facility] Allergies, Adverse Reactions, Alerts Allergy Allergy Status Severity Reaction(s) Onset Inactive Treating Comm ents Source Name Type Date Date Clinician Ciproflo Propensi Active Rash Univer s xacin ty to 7-05 ity of adverse 00:00: [place] reaction 00 Medical s Branch Iodine Propensi Active Itching Oral Univers ty to 3-15 ity of adverse 00:00: [place] reaction 00 Medical s Branch Cefaclor Propensi Active Rash Univer s ty to 5-05 ity of adverse 00:00: [place] reaction 00 Medical s Branch Ciprocin Propensi Active Rash Univer s onide ty to 5-05 ity of adverse 00:00: [place] reaction 00 Medical s Branch Cephalex Propensi Active Rash Univer s in ty to 5-05 ity of adverse 00:00: [place] reaction 00 Medical s Branch Levoflox Propensi Active Rash Univer s acin ty to 5-05 ity of adverse 00:00: [place] reaction 00 Medical s Branch Cefdinir Propensi Active Rash Univer s ty to 5-05 ity of adverse 00:00: [place] reaction 00 Medical s Branch Penicill Propensi Active Rash Univer s in ty to 5-05 ity of adverse 00:00: [place] reaction 00 Medical s Branch Sulfa Propensi Active Rash 2015- Univers (Sulfona ty to 5-05 ity of mide adverse 00:00: [place] Antibiot reaction 00 Medica l ics) s Branch Social History Social Habit Start Date Stop Date Quantity Comments Source Exposure to Not sure [facility] SARS-CoV-2 (event) Medica l Branch Tobacco use and 2021-04-06 2021-04-06 Never used [facility] exposure 00:00:00 00:00:00 Medical Branch Alcohol intake 2021-04-06 2021-04-06 [facility] 00:00:00 00:00:00 Medical [place] Sex [birth year] [facility] 00:00:00 00:00:00 Medical Branch Smoking Status Start Date Stop Date Source Never smoker [facility] [place] Medications Ordered Filled Start Stop Current Ordering Indication Dosage Frequency Signature Comments Components Source Medication Medication Date Date Medication? Clinician (SIG) Name Name ipratropium Yes 1{ampul 1 Ampule Univers -albuteroL 7-29 e} as needed ity of 0.5 mg-3 15:13: for [place] mg(2.5 mg 43 Wheezing. Medic al base)/3 mL Branch nebulizer solution ipratropium Yes 1{ampul 1 Ampule Univers -albuteroL 7-29 e} as needed ity of 0.5 mg-3 15:13: for [place] mg(2.5 mg 43 Wheezing. Medic al base)/3 mL Branch nebulizer solution ipratropium Yes 1{ampul 1 Ampule Univers -albuteroL 7-29 e} as needed ity of 0.5 mg-3 15:13: for [place] mg(2.5 mg 43 Wheezing. Medic al base)/3 mL Branch nebulizer solution Cholecalcif Yes Take by Un josafat edu, 7- mouth. ity of Vitamin D3, 15:04: [place] (VITAMIN 52 Medical D3) 1,000 Branch unit capsule gabapentin Yes 100mg Take 100 Un josafat 100 mg 7-29 mg by ity of capsule 15:04: mouth 2 [place] 52 (two) Medical times Branch daily. magnesium 2021-0 Yes 400mg Take 400 Uni vers oxide 400 7-29 mg by ity of mg (241.3 15:04: mouth [place] mg 52 daily. Medical magnesium) Branch tablet aspirin 81 Yes 81mg Take 81 mg U nivers mg chewable 7-29 by mouth ity of tablet 15:04: daily. [place] [address] Medical Branch Lactobacill Yes 1{tbl} Take 1 Un josafat us 7-29 tablet by ity of acidophilus 15:04: mouth [place] 2 billion 52 daily. Medical cell Tab Branch fluticasone Yes 1{puff} Inhale 1 Univers furoate-isma 7-29 Puff ity of anteroL 15:04: daily. [place] ([facility] 52 Medical ELLIPTA) Branch 200-25 mcg/dose DsDv Cholecalcif Yes Take by Un josafat edu, 7-29 mouth. ity of Vitamin D3, 15:04: [place] (VITAMIN Medical D3) 1,000 Branch unit capsule gabapentin Yes 100mg Take 100 Un josafat 100 mg 7-29 mg by ity of capsule 15:04: mouth 2 [place] [address] (two) Medical times Branch daily. magnesium Yes 400mg Take 400 Uni vers oxide 400 7-29 mg by ity of mg (241.3 15:04: mouth [place] mg 52 daily. Medical magnesium) Branch tablet aspirin 81 Yes 81mg Take 81 mg U nivers mg chewable 7-29 by mouth ity of tablet 15:04: daily. [place] [address] Medical Branch Lactobacill Yes 1{tbl} Take 1 Un josafat us 7-29 tablet by ity of acidophilus 15:04: mouth [place] 2 billion 52 daily. Medical cell Tab Branch fluticasone Yes 1{puff} Inhale 1 Univers furoate-isma 7-29 Puff ity of anteroL 15:04: daily. [place] (BREO 52 Medical ELLIPTA) Branch 200-25 mcg/dose DsDv Cholecalcif Yes Take by Un josafat edu, 7-29 mouth. ity of Vitamin D3, 15:04: [place] (VITAMIN 52 Medical D3) 1,000 Branch unit capsule gabapentin 2020-0 Yes 100mg Take 100 Un josafat 100 mg 7-29 mg by ity of capsule 15:04: mouth 2 [place] 52 (two) Medical times Branch daily. magnesium Yes 400mg Take 400 Uni vers oxide 400 7-29 mg by ity of mg (241.3 15:04: mouth [place] mg 52 daily. Medical magnesium) Branch tablet aspirin 81 Yes 81mg Take 81 mg U nivers mg chewable 7-29 by mouth ity of tablet 15:04: daily. [place] [address] Medical Branch Lactobacill Yes 1{tbl} Take 1 Un josafat us 7-29 tablet by ity of acidophilus 15:04: mouth [place] 2 billion 52 daily. Medical cell Tab Branch fluticasone Yes 1{puff} Inhale 1 Univers furoate-isma 7-29 Puff ity of anteroL 15:04: daily. [place] (BREO 52 Medical ELLIPTA) Branch 200-25 mcg/dose DsDv simvastatin Yes 20mg Take 20 mg Univers (ZOCOR) 20 4-13 by mouth ity o f mg tablet 00:00: at [place] [address] bedtime. Medical Branch simvastatin Yes 20mg Take 20 mg Univers (ZOCOR) 20 4-13 by mouth ity o f mg tablet 00:00: at [place] 00 bedtime. Medical Branch simvastatin Yes 20mg Take 20 mg Univers (ZOCOR) 20 4-13 by mouth ity o f mg tablet 00:00: at [place] 00 bedtime. Medical Branch clopidogrel Yes 37.5mg Take 37.5 Univers (PLAVIX) 75 3-21 mg by ity of mg tablet 00:00: mouth [place] 00 daily. Medical Branch clopidogrel Yes 37.5mg Take 37.5 Univers (PLAVIX) 75 3-21 mg by ity of mg tablet 00:00: mouth [place] 00 daily. Medical Branch clopidogrel Yes 37.5mg Take 37.5 Univers (PLAVIX) 75 3-21 mg by ity of mg tablet 00:00: mouth [place] 00 daily. Medical Branch Immunizations Ordered Filled Immunization Date Status Comments [facility] e Immunization Name Name Pneumococcal 2019-07-02 Completed Universit y of Conjugate, PCV13 00:00:00 [facility] dical (Prevnar 13) Branch Pneumococcal 13 2019-07-02 Completed Universit y of Conjugate, PCV13 00:00:00 [facility] dical (Prevnar 13) Branch Pneumococcal 13 2019-07-02 Completed Universit y of Conjugate, PCV13 00:00:00 [facility] dical (Prevnar 13) Branch Procedures Procedure Date / Time Performed Performing Clinician [facility] e ASSIGNMENT OF BENEFITS 2021-06-01 18:48:40 Doctor Unassigned, No [facility] Name Medical Branch Encounters Start End Encounter Admission Attending Care Care Encounter Source Date/Time Date/Time Type Type Clinicians Facility Department ID 2021-06-03 2021-06-03 Stone Mason Therapist, [facility] Respiratory [facility] [id number] Univers 07:33:46 09:03:46 Visit Lenoardo Tiwari [id number] ity of [place] [id number] [facility] [id number] [facility] 083 Branch 2021-06-01 2021-06-01 Laboratory Only, [facility] Test [facility] 1.2.840. [id number] Univers 13:49:55 14:04:55 Only Leonardo Tiwari [id number] ity of [place] [id number] [facility] [id number] [facility] 353 Branch 2021-06-01 2021-06-01 Orders Doctor OLIVERIO [id number] Univers 00:00:00 00:00:00 Only UnassignedESME [id number] ity of [place] [facility] [id number] Ey[place] [id number] [facility] 009 Branch 2020-08-20 2020-08-20 Transition David Singh [id number] 00:00:00 00:00:00 of Care Nolan Davies [id number] [place] [id number] [facility] 2020-08-09 2020-08-19 [facility] Oleg Villegas [facility] 1.2.840.1 [id number] 16:59:00 17:04:00 Encounter Audi Porras [id number] Deloris Canales [id number] [place] [id number] [facility] 2020-02-25 2020-02-25 Emergency Audi Porras [facility] [id number] 12:36:11 16:01:00 Bev Diop [id number] [place] [id number] [place] [id number] 084 2020-02-25 2020-02-25 Orders Doctor OLIVERIO [id number] 00:00:00 00:00:00 Only Unassigned, ESME [id number] [place] [facility] [id number] [id number] 009 2020-02-15 2020-02-15 [facility] [id number] 03:34:26 06:46:00 Vj Diop [id number] [place] [id number] [place] [id number] 084 Results This patient has no known results.
--- NOTE | 2021-06-15 15:32 | RAD REPORT ---
EXAM DESCRIPTION: CT - Head Brain Wo Cont - 06/15/2021 3:24 pm CLINICAL HISTORY: TRAUMA, fall with head injury COMPARISON: Head Brain Wo Cont dated 11/15/2019 TECHNIQUE: Axial 5 mm thick images of the head were obtained without IV contrast. All CT scans are performed using dose optimization technique as appropriate and may include automated exposure control or mA/KV adjustment according to patient size. FINDINGS: No intracranial hemorrhage, mass, edema or shift of mid-line structures. No acute infarcti on changes seen. No abnormal extra-axial fluid collections. Moderate atrophy with ventricles in propo rtion. Atrophy matches comparison. Chronic ischemic change is minimal. Arterial calcifications are pr esent. Mastoid air cells and visualized portions of the paranasal sinuses are clear. No acute bony findings. Small posterior left parietal scalp hematoma is present. IMPRESSION: No acute intracranial findings. Atrophy and chronic ischemic changes match November 2019 imaging.
[2021-06-15] MEDS ORDERED: ONDANSETRON 4 MG/2 ML VIAL ONE (15:48)
[2021-06-15] MEDS ORDERED: ONDANSETRON 4 MG (ODT) TAB ONE (15:50)
[2021-06-15] MEDS ORDERED: SILVER NITRATE 1 APPL TOP ONE (16:06)
[2021-06-15] MEDS ORDERED: LIDOCAINE 1% W/EPI 1:100,000 MDV 20 ML VIAL ONE (16:11)
--- NOTE | 2021-06-15 16:34 | EDPHYS ---
Physician Documentation [facility] Name: Zoe Diaz Age: 89 yrs Sex: Female : 1930 Arrival Date: 06/15/2021 Time: 15:14 Bed 6 Private MD: ED Physician Albert Del Cid HPI: 06/15 16:26 This 89 yrs old Female presents to ER via EMS with complaints of Fall injury. jr8 16:26 The patient or guardian reports a laceration, 4 cm(s), simple, pain. The complaints jr8 affect the top of head. Context of injury: The problem was sustained at home, resulted from a fall. Onset: The symptoms/episode began/occurred acutely, today. Associated signs and symptoms: Loss of consciousness: This patient did not experience any loss of consciousness. Pertinent positives: dazed, nausea. Severity of symptoms: At their worst the symptoms were moderate, in the emergency department the symptoms have improved, mildly. The patient has not experienced similar symptoms in the past. The patient has not recently seen a physician. This is an 89-year-old female patient was brought in by EMS status post fall patient stated that she was wearing shoes that she had not had in a long time and tripped falling backwards hitting the back of her head. EMS stated that she had a laceration with bleeding that they bandaged prior to arrival. Patient denies loss of consciousness but did feel dazed immediately after incident and has been slightly nauseated. Denies any other complaints at this time.. 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 - Social history:: Smoking status: Patient denies any tobacco usage or history of. ROS: 16:26 Eyes: Negative for injury, pain, redness, and discharge, ENT: Negative for injury, jr8 pain, and discharge, Neck: Negative for injury, pain, and swelling, Cardiovascular: Negative for chest pain, palpitations, and edema, Respiratory: Negative for shortness of breath, cough, wheezing, and pleuritic chest pain, Abdomen/GI: Negative for abdominal pain, vomiting, diarrhea, and constipation. Positive for nausea Back: Negative for injury and pain, MS/Extremity: Negative for injury and deformity, Neuro: Negative for headache, weakness, numbness, tingling, and seizure. 16:26 Skin: Positive for laceration(s). Exam: 16:26 Eyes: Pupils equal round and reactive to light, extra-ocular motions intact. Lids and jr8 lashes normal. Conjunctiva and sclera are non-icteric and not injected. Cornea within normal limits. Periorbital areas with no swelling, redness, or edema. ENT: Nares patent. No nasal discharge, no septal abnormalities noted. Tympanic membranes are normal and external auditory canals are clear. Oropharynx with no redness, swelling, or masses, exudates, or evidence of obstruction, uvula midline. Mucous membranes moist. Neck: Trachea midline, no thyromegaly or masses palpated, and no cervical lymphadenopathy. Supple, full range of motion without nuchal rigidity, or vertebral point tenderness. No Meningismus. Chest/axilla: Normal chest wall appearance and motion. Nontender with no deformity. No lesions are appreciated. Cardiovascular: Regular rate and rhythm with a normal S1 and S2. No gallops, murmurs, or rubs. Normal PMI, no JVD. No pulse deficits. Respiratory: Lungs have equal breath sounds bilaterally, clear to auscultation and percussion. No rales, rhonchi or wheezes noted. No increased work of breathing, no retractions or nasal flaring. Abdomen/GI: Soft, non-tender, with normal bowel sounds. No distension or tympany. No guarding or rebound. No evidence of tenderness throughout. Back: No spinal tenderness. No costovertebral tenderness. Full range of motion. Skin: Warm, dry with normal turgor. Normal color with no rashes, no lesions, and no evidence of cellulitis. MS/ Extremity: Pulses equal, no cyanosis. Neurovascular intact. Full, normal range of motion. Neuro: Awake and alert, GCS 15, oriented to person, place, time, and situation. Cranial nerves II-XII grossly intact. Motor strength 5/5 in all extremities. Sensory grossly intact. 16:26 Head/face: Noted is a laceration(s), that is deep, that is linear, 4 cm(s), of the back of head. Vital Signs: 15:18 BP 132 / 88; Pulse 74; Resp 19; Pulse Ox 97% on R/A; ap3 16:29 BP 135 / 59; Pulse 74; Pulse Ox 96% on R/A; ap3 17:01 BP 141 / 67; Pulse 71; Resp 18; Pulse Ox 99% ; Pain 0/10; ch5 Orrtanna Coma Score: 16:26 Eye Response: spontaneous(4). Verbal Response: oriented(5). Motor Response: obeys jr8 commands(6). Total: 15. Laceration: 16:26 Wound Repair of 4cm ( 1.6in ) subcutaneous laceration to back of head. Linear shaped.. jr8 Profuse bleeding noted.. Distal neuro/vascular/tendon intact. Anesthesia: Local anesthetic administered with 5 mls of 1% lidocaine w/ Epi. Wound prep: Extensive cleansing with hibiclenz, Wound irrigation with saline, Wound explored extensively. Skin closed with 4 Kenneth [place] using staple gun. Patient tolerated well. MDM: 15:15 Patient medically screened. jr8 16:26 Data reviewed: vital signs, nurses notes, radiologic studies, CT scan. Data jr8 interpreted: Pulse oximetry: on room air is 97 %. Interpretation: normal. Counseling: I had a detailed discussion with the patient and/or guardian regarding: the historical points, exam findings, and any diagnostic results supporting the discharge/admit diagnosis, radiology results, the need for outpatient follow up, a family practitioner, to return to the emergency department if symptoms worsen or persist or if there are any questions or concerns that arise at home. ED course: Patient is remained hemodynamically stable. Bleeding controlled post approximation with kenneth and lidocaine with epinephrine. CT of the head was without acute brain bleed or skull fracture. Patient has been observed without any further incident. Patient will be staying with her daughter carmen for close observation. Signs and symptoms of worsening condition given to patient and other daughter to watch for. Both of them are good with the plan at this time.. 06/15 15:15 Order name: CT Head Brain wo Cont; Complete Time: 15:36 jr8 Administered Medications: 16:07 Drug: Zofran (Ondansetron) 4 mg Route: PO; ap3 Disposition: 17:06 Co-signature as Attending Physician, Albert Del Cid MD I agree with the assessment and rn plan of care. Attestation: The patient's history, exam findings, diagnostics, and a summary of any interventions or procedures was reviewed in detail with Americo TRUJILLO. Disposition Summary: 06/15/21 16:33 Discharge Ordered Location: Home jr Problem: new jr8 Symptoms: have improved jr8 Condition: Stable jr8 Diagnosis - Laceration without foreign body of scalp jr8 Followup: jr8 - With: Private Physician - When: 1 week - Reason: Wound Recheck, Recheck today's complaints, Continuance of care, Staple/Suture removal, Re-evaluation by your physician Discharge Instructions: - Discharge Summary Sheet jr8 - Head Injury, Adult jr8 - Sutures, [place], or Adhesive Wound Closure jr8 Forms: - Medication Reconciliation Form jr8 - Thank You Letter jr8 - Antibiotic Education jr8 - Prescription Opioid Use jr8 Signatures: Dispatcher [employer] EDMS Albert Del Cid MD MD rn Roszak, Josh, PA PA jr8 Bernie Mancia RN RN ap3
--- NOTE | 2021-06-15 16:34 | ER ---
Nurse's Notes [facility] Name: Zoe Diaz Age: 89 yrs Sex: Female : 1930 Arrival Date: 06/15/2021 Time: 15:14 Bed 6 Private MD: Diagnosis: Laceration without foreign body of scalp Presentation: 06/15 15:14 Chief complaint: EMS states: patient was ambulating to door with new shoes on, when she ap3 lost her balance and fell backwards. patient denies LOC. states she takes an anticoagulant. Coronavirus screen: At this time, the client does not indicate any symptoms associated with coronavirus-19. Ebola Screen: Patient denies travel to an Ebola-affected area in the 21 days before illness onset. Risk Assessment: Do you want to hurt yourself or someone else? Patient reports no desire to harm self or others. 15:14 Method Of Arrival: EMS: [facility] ap3 15:16 Onset of symptoms was June 15, 2021. ap3 15:21 Initial Sepsis Screen: Does the patient meet any 2 criteria? No. Patient's initial ap3 sepsis screen is negative. Does the patient have a suspected source of infection? No. Patient's initial sepsis screen is negative. 15:21 Acuity: MATHIEU 3 ap3 Triage Assessment: 15:19 General: Appears slender, Behavior is calm, cooperative. Pain: Complains of pain in ap3 back of head Pain began suddenly. EENT: No signs and/or symptoms were reported regarding the EENT system. Neuro: Level of Consciousness is awake, alert, obeys commands, Oriented to person, place, time, situation, Speech is normal. Respiratory: Airway is patent Respiratory effort is even, unlabored, Respiratory pattern is regular, symmetrical. GI: Reports nausea. : No signs and/or symptoms were reported regarding the genitourinary system. Derm: Wound noted scalp. Musculoskeletal: Reports pain in back of head. Injury Description: fall. 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 - Social history:: Smoking status: Patient denies any tobacco usage or history of. Screenin:16 Abuse screen: Denies threats or abuse. Nutritional screening: No deficits noted. ap3 Tuberculosis screening: No symptoms or risk factors identified. Fall Risk. Vital Signs: 15:18 BP 132 / 88; Pulse 74; Resp 19; Pulse Ox 97% on R/A; ap3 16:29 BP 135 / 59; Pulse 74; Pulse Ox 96% on R/A; ap3 17:01 BP 141 / 67; Pulse 71; Resp 18; Pulse Ox 99% ; Pain 0/10; ch5 [place] Coma Score: 16:26 Eye Response: spontaneous(4). Verbal Response: oriented(5). Motor Response: obeys jr8 commands(6). Total: 15. ED Course: 15:14 Patient arrived in ED. ap3 15:14 Bernie Mancia, RN is Primary Nurse. ap3 15:15 Americo Rose PA is PHCP. jr8 15:15 Albert Del Cid MD is Attending Physician. jr8 15:16 Patient has correct armband on for positive identification. Placed in gown. Bed in low ap3 position. Call light in reach. Side rails up X2. Pulse ox on. NIBP on. Door closed. Noise minimized. 15:21 Triage completed. ap3 15:24 CT Head Brain wo Cont In Process Unspecified. EDMS 15:35 Assist provider with laceration repair on back of head that was between 2.6 to 7.5 cm ap3 using dion. Set up tray. Performed by Americo TRUJILLO Patient tolerated well. 15:58 Wound care: was cleaned with soap and water, Patient tolerated well. ap3 15:59 Arm band placed on right wrist. ap3 Administered Medications: 16:07 Drug: Zofran (Ondansetron) 4 mg Route: PO; ap3 Outcome: 16:33 Discharge ordered by . jr8 17:01 Discharged to home via wheelchair, with family. [facility] 17:01 Condition: improved 17:01 Discharge instructions given to patient, family, Instructed on wound care. 17:02 Patient left the ED. ch5 Signatures: Dispatcher [employer] EDAmerico Bronson PA PA jr8 Bernie Mancia RN RN ap3 Jose Angel Gomez RN RN ch5
[2021-06-15 17:11] VITALS: BP 141/67; O2SAT 99
== END 2021-06-15 17:02 | disposition home or self-care (01) ==
LOC: ER 15:10
PROC: 0JQ00ZZ Repair Scalp Subcutaneous Tissue and Fascia, Open Approach (ICD-10-PCS; principal; 2021-06-15)
DX: S01.01XA Laceration without foreign body of scalp, initial encounter (principal); W01.0XXA Fall on same level from slipping, tripping and stumbling without subsequent striking against object, initial encounter; Y92.009 Unspecified place in unspecified non-institutional (private) residence as the place of occurrence of the external cause; I10 Essential (primary) hypertension; Z88.0 Allergy status to penicillin; Z88.1 Allergy status to other antibiotic agents; Z88.2 Allergy status to sulfonamides; Z88.3 Allergy status to other anti-infective agents; Z88.5 Allergy status to narcotic agent; Z88.8 Allergy status to other drugs, medicaments and biological substances; Z91.048 Other nonmedicinal substance allergy status
CPT/HCPCS: 70450; 99284; J2405

== ENCOUNTER 2021-06-18 12:11 | Emergency (ER) | payer OTHER, MEDICARE ==
[2021-06-18] MEDS ORDERED: ACETAMINOPHEN 500 MG TAB ONE (12:50)
[2021-06-18] MEDS ORDERED: ONDANSETRON 4 MG (ODT) TAB ONE (12:50)
--- NOTE | 2021-06-18 13:45 | RAD REPORT ---
EXAM DESCRIPTION: CT - Head Brain Wo Cont - 06/18/2021 1:36 pm CLINICAL HISTORY: HEADACHE COMPARISON: Head Brain Wo Cont dated 06/15/2021; Head Brain Wo Cont dated 11/15/2019 TECHNIQUE: All CT scans are performed using dose optimization technique as appropriate and may inclu de automated exposure control or mA/KV adjustment according to patient size. FINDINGS: No intracranial hemorrhage, hydrocephalus or extra-axial fluid collection.No areas of brai n edema or evidence of midline shift. Left-sided scalp dion. Cerebral atrophy. Minimal chronic sma ll vessel ischemic changes. The paranasal sinuses and mastoids are clear. The calvarium is intact. IMPRESSION: No acute intracranial abnormality. No skull fracture.
--- NOTE | 2021-06-18 16:12 | EDPHYS ---
Physician Documentation [facility] Name: Zoe Diaz Age: 89 yrs Sex: Female : 1930 Arrival Date: 06/18/2021 Time: 12:15 Bed 28 Private MD: ED Physician Onofre Garcia HPI: 06/18 12:26 This 89 yrs old Female presents to ER via EMS with complaints of Nausea, jmm General Weakness, Headache. 12:26 The patient presents to the emergency department with nausea, vomiting. Onset: The jmm symptoms/episode began/occurred acutely, 3 day(s) ago. Possible causes: Head injury. The symptoms are aggravated by nothing. The symptoms are alleviated by nothing. Associated signs and symptoms: Pertinent positives:. This is an 89-year-old female with a history of diverticulitis, hypertension that presents emerged part with complaints of headache vomiting increased sleeping after head injury which occurred earlier this week.. Historical: - Allergies: 12:18 CEPHALOSPORINS; ld1 12:18 Cipro; rash; ld1 12:18 Iodine; ld1 12:18 Levaquin; aches all over; ld1 12:18 Omnicef; rash; ld1 12:18 PENICILLINS; ld1 12:18 QUINOLONES; ld1 12:18 Sulfa (Sulfonamide Antibiotics); rash; ld1 - PMHx: 12:18 aortic anuersym; - has been stented; Cdiff; Diverticulitis; Hypertension; ld1 - Immunization history:: Adult Immunizations up to date. - Social history:: Smoking status: Patient denies any tobacco usage or history of. ROS: 16:08 Cardiovascular: Negative for chest pain, palpitations, and edema, Respiratory: Negative jmm for shortness of breath, cough, wheezing, and pleuritic chest pain. 16:08 Constitutional: Positive for fatigue. 16:08 Neuro: Positive for headache. 16:08 All other systems are negative. Exam: 16:08 Constitutional: This is a well developed, well nourished patient who is awake, alert, jmm and in no acute distress. Head/Face: atraumatic. Eyes: EOMI, no conjunctival erythema appreciated ENT: Moist Mucus Membranes Neck: Trachea midline, Supple Chest/axilla: Normal chest wall appearance and motion. Cardiovascular: Regular rate and rhythm. No edema appreciated Respiratory: Normal respirations, no respiratory distress appreciated Abdomen/GI: Non distended, soft Back: Normal ROM Skin: General appearance color normal 16:08 Musculoskeletal/extremity: ROM: intact in all extremities. 16:08 Skin: Appearance: Color: normal in color. 16:08 Neuro: Orientation: is normal, Mentation: is normal, Memory: is normal. 16:08 Psych: Behavior/mood is pleasant, cooperative. Vital Signs: 12:16 BP 150 / 59; Pulse 76; Resp 18; Temp 98.7(TE); Pulse Ox 94% on R/A; Weight 56.7 kg; ld1 Height 5 ft. 4 in. (162.56 cm); Pain 8/10; 13:27 BP 137 / 52; Pulse 72; Resp 19; Pulse Ox 96% on R/A; ld1 14:15 BP 146 / 56; Pulse 69; Resp 18; Pulse Ox 96% on R/A; ld1 15:20 BP 165 / 63; Pulse 68; Resp 19; Pulse Ox 96% on R/A; ld1 12:16 Body Mass Index 21.46 (56.70 kg, 162.56 cm) ld1 MDM: 12:26 Patient medically screened. [facility] 16:10 Data reviewed: vital signs, nurses notes. Counseling: I had a detailed discussion with flakito the patient and/or guardian regarding: the historical points, exam findings, and any diagnostic results supporting the discharge/admit diagnosis, radiology results, the need for outpatient follow up, to return to the emergency department if symptoms worsen or persist or if there are any questions or concerns that arise at home. ED course: [facility] imaging is negative. Daughter given head injury return precautions. Most likely a post concussive syndrome.. 06/18 13:22 Order name: CT Head Brain wo Cont; Complete Time: 13:55 [facility] 06/18 14:22 Order name: PO challenge; Complete Time: 14:25 [facility] 06/18 14:22 Order name: Misc. Order: ambulate; Complete Time: 15:05 [facility] Administered Medications: 12:35 Drug: Zofran (Ondansetron) 4 mg Route: PO; ld1 12:35 Follow up: Response: No adverse reaction ld1 12:35 Drug: Tylenol 1000 mg Route: PO; ld1 12:35 Follow up: Response: No adverse reaction ld1 Disposition: 16:54 Co-signature as Attending Physician, Onofre Garcia MD I agree with the assessment and kdr plan of care. Disposition Summary: 06/18/21 16:12 Discharge Ordered Location: Home [facility] Condition: Stable jm Diagnosis - Postconcussional syndrome [facility] Followup: m - With: Private Physician - When: 2 - 3 days - Reason: Recheck today's complaints, Continuance of care, Re-evaluation by your physician Discharge Instructions: - Discharge Summary Sheet [facility] - Concussion, Adult [facility] Forms: - Medication Reconciliation Form [facility] - Thank You Letter [facility] - Antibiotic Education [facility] - Prescription Opioid Use [facility] Prescriptions: - ondansetron 4 mg Oral tablet,disintegrating - place 1 tablet by TRANSLINGUAL route every 4-6 hours; 20 tablet; Refills: 0, jmm Product Selection Permitted Signatures: Dispatcher [employer] EDOnofre Zuleta MD MD kdr Mickail, Joel, PA PA [facility] Tierra Carr, RN RN ld1
--- NOTE | 2021-06-18 16:12 | ER ---
Nurse's Notes [facility] Name: Zoe Diaz Age: 89 yrs Sex: Female : 1930 Arrival Date: 06/18/2021 Time: 12:15 Bed 28 Private MD: Diagnosis: Postconcussional syndrome Presentation: 06/18 12:16 Chief complaint: EMS states: toned out for headache, nausea and generalized weakness. ld1 Pt reports recent ER visit due to fall, dion noted to the back of head. Pt states that headache has continued since fall and has not gone away. Coronavirus screen: At this time, the client does not indicate any symptoms associated with coronavirus-19. Ebola Screen: No symptoms or risks identified at this time. Initial Sepsis Screen: Does the patient meet any 2 criteria? No. Patient's initial sepsis screen is negative. Does the patient have a suspected source of infection? No. Patient's initial sepsis screen is negative. Risk Assessment: Do you want to hurt yourself or someone else? Patient reports no desire to harm self or others. Onset of symptoms was June 18, 2021. 12:16 Method Of Arrival: EMS: [facility] ld1 12:16 Acuity: MATHIEU 3 ld1 Triage Assessment: 12:18 General: Appears in no apparent distress. uncomfortable, Behavior is calm, cooperative, ld1 appropriate for age. Pain: Complains of pain in face Pain does not radiate. Pain currently is 8 out of 10 on a pain scale. Quality of pain is described as throbbing, Pain began 2-3 days ago. Is continuous. EENT: No signs and/or symptoms were reported regarding the EENT system. Neuro: Level of Consciousness is awake, alert, obeys commands, Oriented to person, place, time, situation, Appropriate for age Reports dizziness, headache weakness. Cardiovascular: Capillary refill < 3 seconds Patient's skin is warm and dry. Rhythm is sinus rhythm. Respiratory: Airway is patent Respiratory effort is even, unlabored, Respiratory pattern is regular, symmetrical. GI: Abdomen is flat, non-distended, Reports nausea. : No signs and/or symptoms were reported regarding the genitourinary system. Derm: No signs and/or symptoms reported regarding the dermatologic system. Musculoskeletal: No signs and/or symptoms reported regarding the musculoskeletal system. Historical: - Allergies: 12:18 CEPHALOSPORINS; ld1 12:18 Cipro; rash; ld1 12:18 Iodine; ld1 12:18 Levaquin; aches all over; ld1 12:18 Omnicef; rash; ld1 12:18 PENICILLINS; ld1 12:18 QUINOLONES; ld1 12:18 Sulfa (Sulfonamide Antibiotics); rash; ld1 - PMHx: 12:18 aortic anuersym; - has been stented; Cdiff; Diverticulitis; Hypertension; ld1 - Immunization history:: Adult Immunizations up to date. - Social history:: Smoking status: Patient denies any tobacco usage or history of. Screenin:21 Abuse screen: Denies threats or abuse. Denies injuries from another. Nutritional ld1 screening: No deficits noted. Tuberculosis screening: No symptoms or risk factors identified. Fall Risk Fall in past 12 months (25 points). Total Matthews Fall Scale indicates No Risk (0-24 pts). Assessment: 12:21 Reassessment: See triage assessment. GI: Abdomen is flat, non-distended, Reports nausea.ld1 13:27 Reassessment: Patient appears in no apparent distress at this time. No changes from ld1 previously documented assessment. Patient and/or family updated on plan of care and expected duration. Pain level reassessed. Patient is alert, oriented x 3, equal unlabored respirations, skin warm/dry/pink. 14:15 Reassessment: Patient appears in no apparent distress at this time. No changes from ld1 previously documented assessment. Patient and/or family updated on plan of care and expected duration. Pain level reassessed. Patient is alert, oriented x 3, equal unlabored respirations, skin warm/dry/pink. 15:20 Reassessment: Patient appears in no apparent distress at this time. No changes from ld1 previously documented assessment. Patient is alert, oriented x 3, equal unlabored respirations, skin warm/dry/pink. Vital Signs: 12:16 BP 150 / 59; Pulse 76; Resp 18; Temp 98.7(TE); Pulse Ox 94% on R/A; Weight 56.7 kg; ld1 Height 5 ft. 4 in. (162.56 cm); Pain 8/10; 13:27 BP 137 / 52; Pulse 72; Resp 19; Pulse Ox 96% on R/A; ld1 14:15 BP 146 / 56; Pulse 69; Resp 18; Pulse Ox 96% on R/A; ld1 15:20 BP 165 / 63; Pulse 68; Resp 19; Pulse Ox 96% on R/A; ld1 12:16 Body Mass Index 21.46 (56.70 kg, 162.56 cm) ld1 ED Course: 12:15 Patient arrived in ED. [facility] 12:16 Tierra Carr, RN is Primary Nurse. ld1 12:18 Triage completed. ld1 12:18 Nicola Shane PA is PHCP. [facility] 12:18 Onofre Garcia MD is Attending Physician. [facility] 12:18 Arm band placed on right wrist. ld1 12:21 Patient has correct armband on for positive identification. Bed in low position. Call ld1 light in reach. Side rails up X2. mass spectrometry manager on. Pulse ox on. NIBP on. Door closed. Noise minimized. Warm blanket given. 12:21 No provider procedures requiring assistance completed. ld1 13:36 CT Head Brain wo Cont In Process Unspecified. EDMS 16:28 Patient did not have IV access during this emergency room visit. ld1 Administered Medications: 12:35 Drug: Zofran (Ondansetron) 4 mg Route: PO; ld1 12:35 Follow up: Response: No adverse reaction ld1 12:35 Drug: Tylenol 1000 mg Route: PO; ld1 12:35 Follow up: Response: No adverse reaction ld1 Outcome: 16:12 Discharge ordered by . [facility] 16:28 Discharged to home via wheelchair, with family. ld1 16:28 Condition: stable 16:28 Discharge instructions given to patient, family, Instructed on discharge instructions, follow up and referral plans. medication usage, Demonstrated understanding of instructions, follow-up care, medications, Prescriptions given X 1. 16:28 Patient left the ED. ld1 Signatures: Dispatcher [employer] EDMI Nicola Shane PA PA jmm Martinez, Maria [facility] Tierra Carr, RN RN ld1
[2021-06-18 16:34] VITALS: TEMP 98.7
[2021-06-18 16:35] VITALS: O2SAT 96
[2021-06-18 16:38] VITALS: BP 165/63
== END 2021-06-18 16:28 | disposition home or self-care (01) ==
LOC: ER 12:11
DX: F07.81 Postconcussional syndrome (principal); W19.XXXA Unspecified fall, initial encounter; I10 Essential (primary) hypertension; Z88.0 Allergy status to penicillin; Z88.2 Allergy status to sulfonamides; Z88.3 Allergy status to other anti-infective agents; Z88.5 Allergy status to narcotic agent; Z91.048 Other nonmedicinal substance allergy status
CPT/HCPCS: 70450; 99284